=== PATIENT | male | born 1995 | race Two or more races ===

== ENCOUNTER 2018-11-30 14:36 | Emergency (ER) | payer OTHER, SELFPAY ==
[2018-11-30 14:37] VITALS: BP 131/84; PULSE 111; RESP 20; TEMP 36.7; O2SAT 99
--- NOTE | 2018-11-30 14:57 | [facility]H.EDGENADL ---
ED Disposition Clinical Impression: Hyperventilation syndrome Disposition: Home, Self-Care Condition on Discharge: Good Instructions: DI for Hyperventilation Additional Instructions: Follow-up with primary care provider. - Critical Care Critical Care Time: No Attestation: On , the high probability of a clinically significant, sudden or life threatening deterioration of the following system(s) required my full and direct attention, intervention and personal management. The time I documented below is in addition to time spent performing reported procedures but includes the following listed in this critical care notation. Medical Decision Making - Ozzie Inquiry Pt receiving controlled substance: Yes Ozzie was queried for this patient: Yes Reference #:: [id number] Risks and benefits of using a controlled substance: were not discussed with pt by me Comment: 2 rxs for norco, last one in Jan 2018. Vital Signs: 11/30/18 14:37 11/30/18 15:38 Temperature 98.0 F Temperature Source Oral Pulse Rate [Right Radial] 111 H 73 Respiratory Rate 20 Blood Pressure [Right Arm] 131/84 124/74 Blood Pressure Mean [Right Arm] 99 90 Blood Pressure Source [Right Arm] Automatic Cuff Blood Pressure Position [Right Arm] Sitting 02 Sat by Pulse Oximetry 99 99 Oxygen Delivery Method Room Air - Lab Data Lab Results 11/30/18 14:50: WBC 9.7, RBC 6.00, Hgb 17.2, Hct 52.7 H, MCV 87.8, MCH 28.7, MCHC 32.7, RDW 12.9, Plt Count 281, MPV 9.8, Neut % (Auto) 52.3, Lymph % (Auto) 35.6, [place] % (Auto) 8.0, Eos % (Auto) 3.1, Baso % (Auto) 1.0, Neut # (Auto) 5.1, Lymph # (Auto) 3.5, [place] # (Auto) 0.8, Eos # (Auto) 0.3, Baso # (Auto) 0.1 11/30/18 14:50: Sodium 139, Potassium 3.1 L, Chloride 102, Carbon Dioxide 24, Anion Gap 16.1 H, BUN 15, Creatinine 1.15, Estimated Creat Clear 157, Estimated GFR 77, Est GFR ( Amer) 94, Glucose 126 H, Calcium 9.1, Troponin I < 0.02 11/30/18 15:27: Plasma/Serum Alcohol 0 11/30/18 15:32: Total Bilirubin 0.5, Direct Bilirubin 0.1, Indirect Bilirubin 0.4, AST 20, ALT 27, Alkaline Phosphatase 60, Total Protein 7.8, Albumin 4.2 11/30/18 15:32: Lipase 187 11/30/18 15:38: Urine Color Yellow, Urine Appearance Clear, Urine pH 7.0, Ur Specific [place] 1.020, Urine Protein Trace, Urine Glucose (UA) Negative, Urine Ketones Negative, Urine Blood Negative, Urine Nitrate Negative, Urine Bilirubin 1+ A, Urine Urobilinogen 0.2, Ur Leukocyte Esterase Negative, Ur Squamous Epith Cells Occasional, Urine Bacteria 1+, Urine Mucus 2+ 11/30/18 15:40: Urine Opiates Screen Negative, Urine Methadone Screen Negative, Ur Barbituates Screen Negative, Ur Phencyclidine Scrn Negative, Ur Amphetamines Screen Negative, U Benzodiazepines Scrn Negative, Urine Cocaine Screen Negative, U Marijuana (THC) Screen Positive H Result diagrams: 11/30/18 14:50 11/30/18 14:50 Orders (Tests/Meds): ED MEDICATIONS Discontinued Medications Generic Name Dose Route Start Last Admin Trade Name Freq PRN Reason Stop Dose Admin Lorazepam 1 mg 11/30/18 14:54 11/30/18 14:55 Ativan 2mg/Ml Vial IV 11/30/18 14:55 1 mg ONCE ONE Administration - Radiology Data #1 Image(s): Chest Image Reviewed: Yes I reviewed the patient's radiology image Preliminary Findings: Normal/NAD - ECG Data Tracing #1 EKG interpreted by Dylan Sullivan MD: Rhythm: sinus tachycardia Rate: 111 [place]: normal Ectopy: none Conduction: normal ST Segment Changes: none T Wave Changes: none Q Waves: none No evidence of acute ischemia or injury - Reevaluation(s) Time: 17:09 Reevaluation #1: Feels much better, symptoms resolved General Adult HPI - General Chief complaint: Weakness Stated complaint: SOA Time Seen by Provider: 11/30/18 14:50 Mode of Arrival: Ambulatory Limitations: No Limitations Description of Symptoms (Recalled from ER Triage Doc. by RN): Pt reports had a sudden episode of feeling SOA, states he just didn't feeling normal. Pt f
--- NOTE | 2018-11-30 14:58 | XR_ITS ---
XR chest portable HISTORY: Shortness of air ITS.REASON: soa ORDERING PHYSICIAN: Dylan Sullivan MD PATIENT AGE: 23 years COMPARISON: None FINDINGS: The cardiomediastinal silhouette and pulmonary vascularity are within normal limits. There is a well-circumscribed nodular density overlying the left lower lobe measuring 6 mm. This could be due to a nipple shadow or granuloma. The remaining lungs are clear. No acute bony findings IMPRESSION: No acute finding Nipple shadow versus granuloma left lower lobe
[2018-11-30 15:08] LABS: Basophils # 0.1 K/mm3 (0-0.2); Eosinophils # 0.3 K/mm3 (0.0-0.4); Eosinophils % 3.1 % (0.1-12.0); Hematocrit 52.7 % (42.0-52.0); Hemoglobin 17.2 g/dL (14.1-18.0); Lymphocytes # 3.5 K/mm3 (0.7-4.5); Lymphocytes % 35.6 % (10-50); Mean Corpuscular HGB Conc 32.7 g/dL (31.8-35.4); Mean Corpuscular Hemoglobin 28.7 pg (27.0-31.2); Mean Corpuscular Volume 87.8 fl (80-94); Mean Platelet Volume 9.8 fl (7.4-10.4); Monocytes # 0.8 K/mm3 (0.1-1.0); Neutrophils # 5.1 K/mm3 (1.8-7.8); Neutrophils % 52.3 % (37.0-80.0); Platelet Count 281 K/mm3 (142-424); Red Cell Distribution Width 12.9 % (11.5-17.5); White Blood Count 9.7 K/mm3 (4.8-10.8)
--- NOTE | 2018-11-30 15:29 | PC.NURSE ---
lab at bedside.
[2018-11-30 15:38] VITALS: BP 124/74; PULSE 73; O2SAT 99
[2018-11-30 15:47] LABS: Microscopic, Urine URINE MICROSCOPIC (MICROSCOPIC)
[2018-11-30 15:53] LABS: Anion Gap 16.1 mEq/L (5-15); Blood Urea Nitrogen 15 mg/dL (7-18); Calcium 9.1 mg/dL (8.5-10.1); Carbon Dioxide 24 mmol/L (21.0-32.0); Chloride 102 mmol/L (98-107); Creatinine Clearance Estimated 157 mL/min (50-200); Creatinine,Serum 1.15 mg/dL (0.70-1.30); Estimated Glomerular Filt Rate 77 ml/min (>60); GFR (African American) 94 ML/MIN (>60); Glucose 126 mg/dL (74-106); Potassium 3.1 mmoL/L (3.5-5.1); Sodium 139 mmol/L (136-145); Troponin I < 0.02 ng/ml (0.00-0.06)
[2018-11-30 16:05] LABS: Ethyl Alcohol 0 mg/dL (0-99)
[2018-11-30 16:09] LABS: Appearance,Urine CLEAR (Clear); Blood, Urine Negative (Negative); Color,Urine YELLOW (Yellow); Glucose,Urine (UA) Negative (Negative); Ketones,Urine Negative (Negative); Leukocyte Esterase,Urine Negative (Negative); Nitrate,Urine Negative (Negative); Protein,Urine TRACE (Negative); Urobilinogen,Urine 0.2 EU/dl (0.2)
[2018-11-30 16:10] LABS: Amphetamine/Metha Screen,Urine Negative ng/mL (<1000); Barbiturates Screen,Urine Negative ng/mL (<200); Benzodiazepines Screen,Urine Negative ng/mL (<200); Cannabinoid Screen,Urine Positive ng/mL (<50); Cocaine Screen,Urine Negative ng/mL (<300); Methadone Screen,Urine Negative ng/mL (<300); Opiate Screen,Urine Negative ng/mL (<300); Phencyclidine Screen,Urine Negative ng/mL (<25)
[2018-11-30 16:21] LABS: Bilirubin,Urine 1+ (Negative)
[2018-11-30 16:26] LABS: Bacteria,Urine 1+ /lpf; Mucus,Urine 2+ /lpf; Squamous Epithelial Cell,Urine Occasional #/hpf (0-5)
[2018-11-30 16:51] LABS: Lipase 187 u/L (73-393)
[2018-11-30 16:54] LABS: Alanine Aminotransferase 27 U/L (12-78); Albumin Level 4.2 gm/dL (3.4-5.0); Aspartate Amino Transferase 20 U/L (15-37); Bilirubin,Direct 0.1 mg/dL (0.0-0.2); Bilirubin,Indirect 0.4 mg/dL (0.0-0.9); Bilirubin,Total 0.5 mg/dL (0.2-1.0); Total Protein,Serum 7.8 gm/dL (6.4-8.2)
[2018-11-30 17:08] LABS: Alkaline Phosphatase 60 U/L (46-116)
[2018-11-30 17:14] VITALS: BP 135/74; PULSE 79; RESP 20; TEMP 36.7
== END 2018-11-30 17:22 | disposition home or self-care (01) ==
PROVIDERS: Emergency Provider Emergency Medicine; PCP Family Medicine
DX: F45.8 Other somatoform disorders (principal); F17.210 Nicotine dependence, cigarettes, uncomplicated; F10.10 Alcohol abuse, uncomplicated
CPT/HCPCS: 36415; 71045; 80048; 80076; 80305; 81001; 83690; 84484; 85025; 93005; 96374; 99284